=== PATIENT | male | born 1935 | race Two or more races ===

== ENCOUNTER 2017-05-12 06:28 | Inpatient (IN) | payer OTHER ==
[~2017-05-12] VITALS: Ht 170.2 cm; Wt 76.7 kg
[~2017-05-12 06:28] MED LIST: ARICEPT5 MG; ASACOL; DOLOGEN CAPLET1 TAB PO; ENALAPRIL MALEAT5 MG; KEFLEX500 MG PO; MEDROL4 MG PO; PLAVIX75 MG PO
== END 2017-05-17 15:46 | DRG 469 ==
LOC: ER 06:28 → O/R 19:01 → SURG 19:01 → SEC-K 19:01 → O/R 05-13 14:10 → SURG 05-13 20:11
PROVIDERS: Orthopaedic Surgery
PROC: 0MTL0ZZ Resection of Right Hip Bursa and Ligament, Open Approach (ICD-10-PCS; 2017-05-13)
PROC: 0SRR0JZ Replacement of Right Hip Joint, Femoral Surface with Synthetic Substitute, Open Approach (ICD-10-PCS; principal; 2017-05-13 14:45)
DX: S72.091A Other fracture of head and neck of right femur, initial encounter for closed fracture (principal); K29.81 Duodenitis with bleeding; K51.811 Other ulcerative colitis with rectal bleeding; I10 Essential (primary) hypertension; E11.9 Type 2 diabetes mellitus without complications; G30.1 Alzheimer's disease with late onset; F02.80 Dementia in other diseases classified elsewhere, unspecified severity, without behavioral disturbance, psychotic disturbance, mood disturbance, and anxiety; B34.9 Viral infection, unspecified; M81.0 Age-related osteoporosis without current pathological fracture; M16.11 Unilateral primary osteoarthritis, right hip; W18.39XA Other fall on same level, initial encounter; Y93.89 Activity, other specified; Y92.89 Other specified places as the place of occurrence of the external cause; Y99.8 Other external cause status